=== PATIENT | male | born 1940 | race Caucasian/White ===

== ENCOUNTER 2017-04-14 08:21 | Outpatient (CLI) | payer MEDICARE ==
--- NOTE | 2017-04-14 09:33 | RAD ---
CERVICAL SPINE: (AP, lateral, standing, flexion, and extension) Date: 04/14/17 HISTORY: M54.12, cervical radiculopathy. COMPARISON: None. FINDINGS: In the neutral position, no significant listhesis. Moderate degenerative narrowing at C5-6. Anterior osteophytes from C3-C7. Moderate facet arthropathy C2-C7. With flexion, there is low grade 2.0 mm C4 over C5 anterolisthesis. This retains normal alignment in extension. IMPRESSION: Low grade translation with 2.0 mm anterolisthesis of C4 over C5 in flexion which improves with extens ion. POS: [facility]
--- NOTE | 2017-04-14 13:55 | MRI ---
MRI CERVICAL SPINE NONCONTRAST: Date: 04/14/17 HISTORY: 76-year-old male with cervical radiculopathy. M54.12. COMPARISON: None. FINDINGS: No major bone marrow signal abnormality. Cervical spinal cord is normal in size and signal. No Chiari I malformation. Vertebral body heights a re maintained. C1-2: No central stenosis. Mildly prominent degenerative pseudopannus posterior to odontoid process. C2-3: Disc space maintained. No central or significant neural foraminal stenosis. Mild to moderate bilatera l degenerative facet changes. C3-4: Disc space maintained. Broad based disc-osteophytic bar complex encroaches upon the anterior aspect o f the spinal canal. Bilateral uncinate process osteophytes. Moderate to severe right degenerative fac et changes. Severe left degenerative facet changes. Mild to moderate central spinal canal stenosis. S evere bilateral neural foraminal stenosis. C4-5: Mild to moderate disc space narrowing. Broad based disc-osteophytic bar complex encroaches upon the a nterior aspect of the spinal canal, causing severe central spinal canal stenosis. Bilateral uncinate process osteophytes and facet hypertrophy encroach upon bilateral neural foramina. Moderate right deg enerative facet changes. Moderate to severe left degenerative facet changes. Severe bilateral neural foraminal stenosis. C5-6: Moderate to severe disc space narrowing. Broad based disc-osteophytic bar complex indents the ventral surface of the spinal cord. Thickened ligamentum flavum abuts the dorsal surface of the spinal cord. This results in severe central spinal canal stenosis, greater than at the C4-5 level. Bilateral unci hanh process osteophytes. Essentially normal bilateral facet joints. Severe right neural foraminal st enosis. Moderate to severe left neural foraminal stenosis. C6-7: Disc space maintained. No high grade central spinal canal stenosis. Mild to moderate bilateral degene rative facet changes. Bilateral uncinate process osteophytes. Mild right neural foraminal stenosis. M oderate left neural foraminal stenosis. C7-T1: Mild disc space narrowing. Moderate bilateral degenerative facet changes. No central stenosis. Mild b ilateral neural foraminal stenosis. IMPRESSION: 1. Cervical spondylosis, with multilevel degenerative disc disease (greatest at C5-6) and multilevel facet osteoarthrosis. 2. Severe central spinal canal stenosis at C5-6 and C4-5. 3. Multilevel high grade bilateral neural foraminal stenosis, including severe. POS: [facility]
== END 2017-04-14 08:22 | disposition home or self-care (01) ==
LOC: TBSIIMAG 08:21
PROVIDERS: ATTEND Neurological Surgery
DX: M47.22 Other spondylosis with radiculopathy, cervical region (principal); M43.12 Spondylolisthesis, cervical region; M48.02 Spinal stenosis, cervical region; M50.122 Cervical disc disorder at C5-C6 level with radiculopathy; M12.88 Other specific arthropathies, not elsewhere classified, other specified site
CPT/HCPCS: 72040; 72141

== ENCOUNTER 2017-04-25 05:44 | Day surgery (SDC) | payer MEDICARE, OTHER ==
--- NOTE | 2017-04-21 17:36 | HP ---
HISTORY OF PRESENT ILLNESS: Mr. Sharp is a 76-year-old male who presents with pain, numbness, a nd tingling in the L5 dermatome bilaterally. He has had this pain for approximately 3 years. He has had several L5-S1 LAST injections with Dr. Zabala, has given him some relief. He is also having pa in with internal rotation of the femur that shoots into the groin. The pain in the low back has made some better with analgesics and bending forward and sitting. Of greater concern, he is having neck pain with symptoms of cervical myelopathy. He has been increasingly off balance, loss of dexterity i n his fingers with fine motor movement and frequently dropping things. He is hyperreflexic in the up per and lower extremities bilaterally and has positive Lhermitte sign when extending the neck. He mulligan s paresthesias in the hands and arms that is nondermatomal. MRI at [facility] as well as x-rays. REVIEW OF SYSTEMS: Ten-point review of systems is completed, is otherwise negative unless stated in the above HPI. PAST MEDICAL HISTORY: None. FAMILY HISTORY: Father is . Mother is . SOCIAL HISTORY: The patient is a nonsmoker, , and has 3 children. MEDICATIONS: 1. Taking acetaminophen 325 mg tablet, 1 tablet orally q.6 hours. 2. Aspirin 81 mg delayed release, 1 tablet orally once a day. 3. Atorvastatin calcium 80 mg tablet, 1 tablet orally once a day. 4. Esomeprazole sodium 40 mg solution reconstituted intravenous. 5. Gabapentin 100 mg capsule, 1 capsule orally 3 times a day. 6. Ibuprofen 200 mg tablet, 1 tablet with food or milk as needed orally 3 times a day. 7. Lisinopril 10 mg tablet, 1 tablet orally once a day. 8. Loratadine 10 mg tablet, 1 tablet orally once a day. 9. Tizanidine HCL 4 mg tablet, 1 tablet as needed orally 3 times a day. ALLERGIES: No known drug allergies. PHYSICAL EXAMINATION: HEENT: Normocephalic, atraumatic. Hearing intact. Moist mucous membranes. Trachea is midline. Ey es, pupils are equal and reactive to light. Extraocular muscles are intact. Sclerae are white, leo cteric. PSYCHIATRIC: Normal mood and affect. CARDIOVASCULAR/CARDIOPULMONARY: No cyanosis or clubbing noted. Intact pedal pulses bilaterally. MUSCULOSKELETAL: Lower extremities, 5/5 strength in bilateral iliopsoas, quadriceps, hamstrings, rig ht tibialis anterior, and extensor hallucis longus. Sensory deficits in the L5 dermatome bilaterally and tender to palpation in the midline lumbar spine. Upper extremity, 5/5 strength in bilateral bic eps and triceps. Limited range of motion in his shoulders. Sensory deficits bilaterally in the hand s and arms. RESPIRATORY: The patient has bilateral symmetric chest rise. Appears to have no shortness of breath . NEUROLOGIC: Cranial nerves II-XII are grossly intact. Speech is fluent. He answers my questions ap propriately. The patient is off balance with gait and station. Tandem gait is off balance. Hyperre flexic in the upper and lower extremities bilaterally. ASSESSMENT: 1. Spondylosis with cervical myelopathy. 2. Radiculopathy of the lumbar region. PLAN: Dr. Guidry offered a C4-C6 ACDF to prevent neurologic decline from the cervical myelopathy, compression on the spinal cord. We discussed the risks, benefits, alternatives, and possible compli cations of surgery. Mr. Sharp understands the risk and is willing to proceed with the surgery. L5 radiculopathy may be considered for treatment after ACDF.
[2017-04-24 14:32] VITALS: BMI 25.8
[2017-04-25] MEDS ORDERED: Sodium Chloride 0.9% 10 ML ONE (06:17)
[2017-04-25] MEDS ORDERED: Thrombin 5000 UNITS/5 ML VIAL ONE (06:17)
[2017-04-25] MEDS ORDERED: CEFAZOLIN/Water 2 GM/20 ML SYRINGE ONE (06:20)
[2017-04-25 06:32] LABS: #Basophils 0.1 thou/uL (0.0-0.2); #Eosinphils 0.3 thou/uL (0.0-0.7); #Lymphocytes 2.4 thou/uL (1.20-3.40); #Monocytes 0.9 thou/uL (0.11-0.59); #Neutrophils 6.3 thou/uL (1.40-6.50); %Basophils 0.8 % (0.0-1.0); %Eosinophils 2.8 % (0.0-10.0); %Lymphocytes 24.5 % (21.0-51.0); %Monocytes 9.3 % (0.0-10.0); %Neutrophils 62.6 % (42.0-75.0); Hemoglobin 12.9 g/dL (14.0-18.0); Mean Corpuscular HGB CONC 33.3 g/dL (32.0-36.0); Mean Corpuscular Hemoglobin 29.5 pg (27.0-31.0); Mean Corpuscular Volume 88.8 fl (80.0-94.0); Mean Platelet Volume 6.6 fL (7.4-10.4); Platelet Count 158 thou/uL (130-400); RBC Distribution Width 13.1 % (11.5-14.5); Red Blood Cell (RBC) Count 4.37 mill/uL (4.70-6.10)
[2017-04-25 06:43] LABS: INR-International Normal Ratio 1.1; PTT 31.8 SEC (22.9-36.1); Prothrombin Time 14.4 SEC (12.0-14.7)
[2017-04-25 06:58] LABS: Anion Gap 12 mmol/L (10-20); BUN (Urea Nitrogen) 20 mg/dL (8.4-25.7); Calc. Creatinine Clearance 86 mL/min (70-130); Calcium 9.1 mg/dL (7.8-10.44); Carbon Dioxide 26 mmol/L (23-31); Chloride 107 mmol/L (98-107); Estimated GFR-MDRD Greater than 90; Glucose 101 mg/dL (83-110); Potassium 3.9 mmol/L (3.5-5.1); Sodium 141 mmol/L (136-145)
[2017-04-25] MEDS ORDERED: Fentanyl 100 MCG/2 ML VIAL ONE ×4 (07:05→11:15)
--- NOTE | 2017-04-25 11:14 | OP ---
DATE OF SURGERY: 04/25/2017 SURGEON: Shon Guidry M.D. FILM PROJECTOR OPERATOR: Aly Ríos PA-C. PREOPERATIVE INDICATION: Treat pain, prevent neurological deterioration. PREOPERATIVE DIAGNOSES: Intervertebral disk disease with cervical spinal stenosis and cervical radic ulopathy at C4-5 and C5-6. POSTOPERATIVE DIAGNOSES: Intervertebral disk disease with cervical spinal stenosis and cervical radi culopathy at C4-5 and C5-6. OPERATIVE PROCEDURE: Anterior cervical diskectomy, intervertebral arthrodesis, placement of interver tebral biomechanical device, anterior cervical plating C4-5 and C5-6, local morselized autograft, mor selized allograft, operating microscope. PREOPERATIVE MEDICATION: Ancef 2 grams IV. DRAIN NUMBER: Zero. DRAIN TYPE: None. OPERATIVE DICTATION: The patient was brought to the operating room. General endotracheal anesthesia was induced. Keeping the neck in normal anatomic alignment, the head was positioned on a gel-filled donut shaped head rest. A lateral fluoro radiograph was used to plan our incision. The right side of the neck was sterilely prepped and draped. We opened our incision with a 10-blade knife and contr olled bleeding with bipolar cautery. We dissected sharply to the platysma and cut this muscle in corina e with our incision. We continued our dissection medial to the sternocleidomastoid, lateral to the t rachea and esophagus, all the way down to the prevertebral space. We placed a marker at C4-C5 and to ok a lateral fluoro radiograph to confirm the levels upon, which we were operating. We elevated the longus colli muscles off the anterior surface of C4, C5, and C6, and placed self-retaining lateral re tractor. Distraction pins were placed at C4 and C6 and we distracted across both of the intervening interspaces. We incised the interspaces with a 15-blade knife and removed disk contents using curett es and rongeurs. The operative microscope was brought into the field. Under microscopic magnification and using microsurgical techniques, we removed the remainder of the i ntervertebral disk. We removed the posterior longitudinal ligament. We removed posterior osteophyte s. At the completion of our diskectomy and osteophytectomy, the dura was decompressed from one nerve root all the way across the interspace to the other nerve roots at C4-5 and C5-6. We then prepared the endplates for grafting using curettes and a bone rasp was used to measure the height of the inter spaces to 6 mm. Two separate 6 mm PEEK intervertebral grafts were brought into the field. The osteo phytes then were removed. The vertebral bodies were carefully cleaned of their soft tissue attachmen ts, morselized into demineralized bone matrix, and this fusion substrate was packed inside the PEEK g rafts before they were advanced into their respective interspaces under radiographic guidance to the appropriate depth. We then removed the distraction pins and took the operating microscope out of the field. A 32-mm anterior cervical plate was brought into the field. We drilled pilot supervisor holes through the plate into the vertebral segments at C4, C5, and C6 and affixed the plate with 14-mm screws. We used variable angle screws at C4 and C5 and fixed angle screws at C6. We engaged the locking mechani sm over each of the 6 screws. We irrigated copiously with bacitracin irrigation. AP and lateral flu nicolas radiographs confirmed adequate position of our instrumentation. We closed the wound in anatomic layers and applied a sterile dressing. This was a clean case and no contamination.
[2017-04-25] MEDS ORDERED: HYDROmorphone 0.5 MG/0.5 ML SYRINGE ONE ×3 (11:44→12:08)
[2017-04-25] MEDS ORDERED: Cyclobenzaprine 10 MG TAB ONE (13:11)
[2017-04-25] MEDS ORDERED: ePHEDrine/0.9% NaCl/PF SYRINGE 50 mg/10 ml ONE (14:37)
[2017-04-25] MEDS ORDERED: Lidocaine 1% PF 5 ML VIAL ONE (14:37)
[2017-04-25] MEDS ORDERED: Ondansetron HCl/PF 4 MG/2 ML Vial ONE (14:37)
[2017-04-25] MEDS ORDERED: Propofol 200 MG/20 ML VIAL ONE (14:37)
[2017-04-25] MEDS ORDERED: PHENYLEPHRINE-NS 100 MCG/ML 10 ML SYRINGE ONE (14:37)
== END 2017-04-25 15:46 | disposition home or self-care (01) ==
LOC: SDC 05:44
PROVIDERS: ATTEND Neurological Surgery
PROC: 0RG20A0 Fusion of 2 or more Cervical Vertebral Joints with Interbody Fusion Device, Anterior Approach, Anterior Column, Open Approach (ICD-10-PCS; principal; 2017-04-25)
DX: M50.122 Cervical disc disorder at C5-C6 level with radiculopathy (principal); M48.02 Spinal stenosis, cervical region; Z90.49 Acquired absence of other specified parts of digestive tract; Z98.890 Other specified postprocedural states; Z95.1 Presence of aortocoronary bypass graft
CPT/HCPCS: 20930; 20936; 22551; 22853; 76001; 80048; 85025; 85610; 85730; 96374 ×2; C1713 ×2; C1776; 36415; A4216; J0131; J1170; J2001; J2405; J2704; J3010; J3490

== ENCOUNTER 2017-04-29 12:26 | Inpatient (IN) | payer MEDICARE, OTHER ==
[2017-04-29] MEDS ORDERED: ISOVUE-370 76%-LOCM 1 ML ONE (12:59)
[2017-04-29 13:42] LABS: #Eosinphils 0.1 thou/uL (0.0-0.7); #Lymphocytes 1.9 thou/uL (1.20-3.40); #Monocytes 0.7 thou/uL (0.11-0.59); #Neutrophils 6.1 thou/uL (1.40-6.50); %Basophils 0.5 % (0.0-1.0); %Eosinophils 1.4 % (0.0-10.0); %Lymphocytes 21.6 % (21.0-51.0); %Monocytes 7.8 % (0.0-10.0); %Neutrophils 68.7 % (42.0-75.0); Hemoglobin 13.2 g/dL (14.0-18.0); Mean Corpuscular HGB CONC 33.8 g/dL (32.0-36.0); Mean Corpuscular Hemoglobin 30.2 pg (27.0-31.0); Mean Corpuscular Volume 89.5 fl (80.0-94.0); Mean Platelet Volume 6.9 fL (7.4-10.4); Platelet Count 195 thou/uL (130-400); RBC Distribution Width 12.7 % (11.5-14.5); Red Blood Cell (RBC) Count 4.38 mill/uL (4.70-6.10); White Blood Cell (WBC) Count 8.9 thou/uL (4.8-10.8)
--- NOTE | 2017-04-29 13:51 | RAD ---
CHEST 1 VIEW: HISTORY: Cough. Recent surgery. FINDINGS: Cardiac silhouette and pulmonary vasculature are unremarkable. Mediastinum is midline with postopera tive changes. There is no lobar consolidation or evidence of pneumothorax. Lungs are hyperinflated. IMPRESSION: Chronic obstructive pulmonary disease. POS: [facility]
[2017-04-29] MEDS ORDERED: PHENYLEPHRINE-NS 100 MCG/ML 10 ML SYRINGE ONE (13:56)
[2017-04-29] MEDS ORDERED: Glycopyrrolate 0.2 MG/ML 5 ML SYRINGE ONE (13:56)
[2017-04-29] MEDS ORDERED: Succinylcholine Chloride 20 MG/ML 10 ml SYRINGE FS ONE (13:56)
[2017-04-29] MEDS ORDERED: Dexamethasone 20 MG/5 ML VIAL ONE (13:56)
[2017-04-29] MEDS ORDERED: PROPOFOL 200 MG/20 ML VIAL ONE (13:56)
[2017-04-29 13:57] LABS: ALT (SGPT) 35 U/L (8-55); AST (SGOT) 31 U/L (5-34); Albumin 4.1 g/dL (3.4-4.8); Alkaline Phosphatase 102 U/L (40-150); Anion Gap 12 mmol/L (10-20); BUN (Urea Nitrogen) 19 mg/dL (8.4-25.7); Bilirubin, Total 0.9 mg/dL (0.2-1.2); Calc. Creatinine Clearance 0 mL/min (70-130); Carbon Dioxide 28 mmol/L (23-31); Chloride 102 mmol/L (98-107); Estimated GFR-MDRD Greater than 90; Globulin 3.3 g/dL (2.4-3.5); Glucose 87 mg/dL (83-110); Potassium 3.9 mmol/L (3.5-5.1); Protein, Total 7.4 g/dL (5.8-8.1); Sodium 138 mmol/L (136-145)
--- NOTE | 2017-04-29 15:07 | CT ---
CT NECK WITH IV CONTRAST: HISTORY: Neck pain. Difficulty swallowing. Cervical spine fusion 4 days ago. FINDINGS: Anterior fixation hardware is in place at the C4-5-6 levels. Soft tissue gas is present within the r ight anterior neck from recent surgery. Centered anterior to the cervical spine at the postoperative levels, an irregular-shaped well-circums cribed fluid collection extends primarily to the right of midline, between the right thyroid lobe and carotid sheath. The internal fluid is homogeneous. It measures up to 8.1 cm length x 5.[address] width x 2.4 cm greatest depth. It effaces the posterior oropharynx and compresses the upper epigl ottis. IMPRESSION: Large irregular-shaped homogeneous fluid collection at the prevertebral space of the midcervical spin e at the levels of recent surgery. There is resultant effacement of the hypopharynx including the up per esophagus. POS: [facility]
[2017-04-29] MEDS ORDERED: Dexamethasone 10 MG/ML VIAL ONE (15:43)
[2017-04-29] MEDS ORDERED: Vancomycin HCl 1.5 GM in Sodium Chloride 0.9% 250 ML 300 ML IVPB SCH (18:00)
[2017-04-29] MEDS ORDERED: Piperacillin/Tazobactam 4.5 GM in Sodium Chloride 0.9% 100 ML IVPB ONE (18:00)
[2017-04-29 18:43] VITALS: BMI 24.7
[2017-04-29] MEDS ORDERED: Lidocaine Viscous Sol 2% 15 ml UD Cup ONE (19:19)
[2017-04-29] MEDS ORDERED: Dexmedetomidine 200 MCG/2 ML VIAL ONE (19:19)
[2017-04-29] MEDS ORDERED: Lidocaine 4% Topical Sol 50 ML BOT ONE (19:19)
[2017-04-29] MEDS ORDERED: Ketamine 50 MG/ML VIAL ONE (19:35)
[2017-04-29] MEDS ORDERED: Lidocaine 4% PF 5 ML AMP NEB SCH (19:45)
[2017-04-29] MEDS ORDERED: Midazolam HCl 2 mg/2 ml Vial ONE (20:05)
[2017-04-29] MEDS ORDERED: Ondansetron HCl/PF 4 MG/2 ML Vial IVP PRN (20:59)
[2017-04-29] MEDS ORDERED: Sedation Protocol FS SCH (20:59)
[2017-04-29] MEDS ORDERED: tiZANidine HCl 4 MG TAB PO PRN (20:59)
[2017-04-29] MEDS ORDERED: diphenhydrAMINE 50 MG/ML VIAL IVP PRN (20:59)
[2017-04-29] MEDS ORDERED: Ventilator Sedation Protocol 1 EACH FS SCH (20:59)
[2017-04-29] MEDS ORDERED: Morphine 10 MG/ML CARPUJECT SLOW IVP PRN (20:59)
[2017-04-29] MEDS ORDERED: Morphine 2 MG/ML SYRINGE SLOW IVP PRN (21:05)
[2017-04-29] MEDS ORDERED: Fentanyl BOLUS 250 ML IVPB PRN (21:05)
[2017-04-29] MEDS ORDERED: Lorazepam 2 MG/ML VIAL SLOW IVP PRN (21:05)
[2017-04-29] MEDS ORDERED: Propofol 1,000 MG/100 ML VIAL IV PRN (21:05)
[2017-04-29] MEDS ORDERED: fentaNYL Citrate/PF 2,000 MCG in Sodium Chloride 0.9% 60 ML IV SCH (21:05)
[2017-04-29] MEDS ORDERED: DISCONTINUE PREVIOUS NARCOTIC PAIN MEDICATIONS AND BENZODIAZEPINES FS SCH (21:05)
[2017-04-29] MEDS ORDERED: Fentanyl 100 MCG/2 ML VIAL ONE (21:07)
[2017-04-29] MEDS: Sodium Chloride 0.9% 1,000 ML IV SCH (22:02)
[2017-04-29] MEDS: CEFAZOLIN/Water 2 GM/20 ML SYRINGE SLOW IVP SCH (22:15)
[2017-04-29] MEDS ORDERED: Pantoprazole 40 MG VIAL IVP SCH (22:15)
--- NOTE | 2017-04-29 22:30 | OP ---
DATE OF PROCEDURE: 04/29/2017 SURGEON: Lee Coe M.D. SOCIAL MEDIA INTERN: Himanshu Lowe PA-C. INDICATION: Obstructed airway. DIAGNOSIS: Postoperative hematoma. PROCEDURE PERFORMED: Exploration of anterior cervical wound with evacuation of postoperative hematoma. ANESTHESIA: General. TECHNIQUE: The patient was brought in to the operating room and placed under general anesthesia. He was placed in the supine position. His anterior cervical incision on the right was prepped and draped in the usual sterile fashion. Following an appropriate operative pause, the incision was reopened. There was of hematoma present extending from beneath the platysma down to the prevertebral space. This was all suctioned away and irrigated copiously. There were no active bleeders evident. After decompressing this area and irrigating it, a deep drain was placed and brought out through a separate puncture site. The wound was then closed in anatomic layers and a pressure dressing was applied. There were no known procedural complications. [facility]ENTERMón[facility]
[2017-04-29] MEDS: Pantoprazole 40 MG VIAL IVP SCH (22:41)
--- NOTE | 2017-04-30 00:27 | PRG ---
DATE OF SERVICE: 04/29/2017 Mr. Sharp is a 76-year-old gentleman status post 2-level ACDF on Monday of this week. He presented to the ER late this afternoon with progressive dysphagia and dysphonia. He had a noncontrast CT performed in the ER, which revealed the prevertebral fluid mass with displacement of the oropharynx. It was still patent; however, on imaging. He has had increasing difficulty with swallowing even liquids at the time of presentation. While not stridorous in the emergency room, he was struggling to maintain his breath. He was given high dose steroids in the ER in an attempt to reduce swelling to see if this would help henny some of his symptoms, but that did not occur and we made the decision to move forward surgically with exploration of wound and evacuation of the fluid mass. I had a discussion with the patient's family and discussed with them the planned procedure as well as risks, benefits, and alternatives. LEON
--- NOTE | 2017-04-30 00:53 | HP ---
HISTORY OF PRESENT ILLNESS: Mr. Sharp is a 76-year-old man who is now postop day #4 following 2 level ACDF from C4-C6. Since Monday, he has started experiencing increasing dysphagia and dyspho aurelio, ultimately culminating a day where he has not been able to swallow even small sips of water. In the emergency department, this became even more difficult where he is having trouble handling his ow n secretions and has been using bedside suction to clear his posterior pharynx several times an hour. CT scan was performed in the emergency department of the soft tissues of his neck, which revealed monique kenney appears to be a consolidated homogenous fluid collection in the prevertebral space that is signif icantly compressive and effacing the esophageal orifice at the level of the epiglottis. This is like ly the source of his increasing troubles. On examination at the bedside, the patient is alert and or iented x3. He is quite hoarse and continues to use the suction during our discussion together as he does have an area of induration immediately incision on the anterolateral neck. His neurologi c exam is normal, and his fluid induration is nontender to palpation. PAST MEDICAL HISTORY: Significant for no major medical problems. CURRENT MEDICATIONS: Tylenol, aspirin, atorvastatin, esomeprazole, gabapentin, ibuprofen, lisinopril , loratadine, and tizanidine. ALLERGIES: No known drug allergies. ASSESSMENT: Intervertebral fluid collection and dysphagia. PLAN: I discussed with the patient at bedside current options. He is in the ICU when I am meeting w chelsi him. The first option would be to just observe and administer Decadron to try to decrease the sw elling within the pharynx and larynx and prevertebral space, but my preference would be to pursue sana gical management to evacuate this fluid collection as I feel that this may precipitate quickly and pu t us in a situation where he would be in a life-threatening scenario. I discussed with ludwin Tejeda o agrees after discussion with the family and the patient at bedside. We will move forward with reop eration and fluid collection evacuation . This is Himanshu Lowe PA-C, dictating for Dr. Lee Coe.
[2017-04-30] MEDS ORDERED: Dexamethasone 4 MG in Sodium Chloride 0.9% 50 ML IVPB SCH (03:00)
[2017-04-30] MEDS: Dexamethasone 4 mg/ml Vial SLOW IVP SCH ×3 (03:35→13:54)
[2017-04-30] MEDS: CEFAZOLIN/Water 2 GM/20 ML SYRINGE SLOW IVP SCH ×2 (06:14→13:54)
[2017-04-30 07:13] LABS: Base Excess (BEa) -3.4 mEq/L (0 (+/-) 2.5); CO2 Tension 41.1 mmHg (35.0-45.0); Hematocrit-ABG 32.8 % (42.0-52.0); Hemoglobin (Hb) 11.6 g/dL (14.0-18.0); O2 Tension (PaO2) 162.4 mmHg (80.0-100.0); pH, Arterial 7.35 (7.35-7.45)
[2017-04-30 07:14] LABS: Analyzer IN Cardio OR; Calcium, Ionized 1.2 mmol/L (1.12-1.30); Puncture Site RRA
[2017-04-30 07:15] LABS: ALV-art Gradient 71.425 (0-20)
--- NOTE | 2017-04-30 08:10 | PRG ---
DATE OF SERVICE: 04/30/2017 HISTORY: Mr. Sharp is postop day #01 following evacuation of a prevertebral hematoma yesterday evening around 8:00 p.m. This morning, he is still intubated and on sedation. This was for the purp ose of protecting his airway as he was edematous in the supraglottal pharynx and was concerned for the possibility of laryngospasm after being extubated after surgery. He will continue to receive two more doses of dexamethasone for this purpose. His drain has put out around 15 mL in total since in the OR. He is following all commands, moves all extremities when off sedation, but unfortunately for me at bedside this morning, he is still on and just had a bolus of propofol. Plan will be likel y later to consider extubation and see how he tolerates this. Overall, his prognosis is good. We wi ll continue to follow.
[2017-04-30] MEDS ORDERED: Prevnar 13-Val Conj/PF 0.5 ML SYRINGE IM ONE (09:00)
[2017-04-30] MEDS: Pantoprazole 40 MG VIAL IVP SCH (09:23)
[2017-04-30] MEDS: Sodium Chloride 0.9% 1,000 ML IV SCH (09:29)
[2017-04-30 10:33] VITALS: BP 115/61
--- NOTE | 2017-04-30 16:13 | PRG ---
DATE OF SERVICE: 04/30/2017 Rerounding today in the afternoon on Mr. Sharp. He has now been extubated and is doing extraord inarily well, tolerates oral intake and feels minimal irritation and still like he had been. His TONYA drain has only put out about 6-10 mL since this morning, so will go ahead and remove his drain and re move his Valles, got him sit up at the bedside and see how he tolerates that. If he does very well, corina casanova may likely be transitioned to the floor later this evening. Otherwise, we will keep him overnight in the ICU with possible discharge tomorrow.
--- NOTE | 2017-04-30 19:43 | CON ---
DATE OF CONSULTATION: 04/30/2017 HISTORY OF PRESENT ILLNESS: Lila is a 76-year-old male who presented with postop hematomas com promising his airway. This has been evacuated (cervical spine). He was left mechanically ventilated . I was consulted to assist in his management. PAST MEDICAL HISTORY: Otherwise unremarkable with the exception of his recent cervical spine surgery . SOCIAL HISTORY: He is nonsmoker, nondrinker. He has used drugs. He is , has children. FAMILY HISTORY: Remarkable for both parents being . He has no family history lung disease a t an early age. MEDICATIONS: Prior to admission he was on Tylenol, aspirin, atorvastatin, protime pump inhibitor, ga bapentin, lisinopril, loratadine and tizanidine. ALLERGIES: He has no reported drug allergies. REVIEW OF SYSTEMS: Negative. PHYSICAL EXAMINATION: VITAL SIGNS: His heart rate is in the 70s, blood pressure 120/68, respiratory rate is 18 and oximetr y is 97%-99%. GENERAL: He has a bandage on his neck. He is orally intubated. He is alert and oriented and moves all extremities equally. Minute volume 6 liters upto 7 liters a minute. He passes a leak test. LUNGS: Clear. HEART: Regular rhythm. ABDOMEN: Soft and nontender. EXTREMITIES: Without asymmetry. LABORATORY DATA: White count yesterday 0.9, hemoglobin 13.2 and platelets 195. Sodium 138, potassium 3.9, chloride 102, bicarb 28, BUN 19 and creatinine 0.82. IMPRESSION AND PLAN: Status post compromised airways associated with postoperative hematoma after ce rvical spine surgery. He is doing well now. He has been extubated. If he is stable this afternoon, he can be transferred out of the critical care unit to the surgical [facility] if neurosurgeons agree. CRITICAL CARE TIME: 30 minutes.
[2017-05-01] MEDS: Sodium Chloride 0.9% 1,000 ML IV SCH (00:43)
--- NOTE | 2017-05-01 06:46 | PRG ---
DATE OF SERVICE: 05/01/2017 I saw Polo Sharp this morning. He came in over the weekend with some difficulty breathing and postoperative hematoma/seroma in the neck that was removed and he is doing quite well. He has no sig nificant neck pain or radiating arm pain. His walking is fine. His hands are working well. Incisio n looks good this morning. There is no tension in the neck. Mr. Sharp will be ready for discharge today. We will make arrangements for that to happen. Act ivity restriction and wound care were reviewed once again and followup arrangements have already been made.
[2017-05-01 08:12] VITALS: TEMP 97.7
[2017-05-01] MEDS: Pantoprazole 40 MG VIAL IVP SCH (10:02)
--- NOTE | 2017-05-01 11:58 | PRG ---
DATE OF SERVICE: 05/01/2017 SUBJECTIVE: Mr. Sharp says he feels back to normal. He says he has no pain in his neck. He de nies shortness of breath and respiratory difficulty. He has no stridor. OBJECTIVE: VITAL SIGNS: On exam, his vital signs have been stable. LUNGS: Clear. HEART: Regular rhythm. ABDOMEN: Soft. IMPRESSION: Status post upper airway obstruction created by a paraspinous hematoma, status post evac uation, clinically doing extremely well. He is to be discharged today.
--- NOTE | 2017-05-03 14:42 | DIS ---
HISTORY OF PRESENT ILLNESS: Mr. Sharp is a 76-year-old male admitted on 04/29/2017 and discharg e on 05/01/2017. He has a history of postop day #4 following 2 level ACDF from C4-C6. Postoperative ly, after he left the hospital experienced increasing dysphagia and dysphonia ultimately accumulating and his inability to swallow even sips of water. In the emergency department, he became even more d ifficulty and is having trouble handling his own secretions. CT scan was performed in the emergency department that showed what appears to be a consolidated homogenous fluid collection on the preverteb ral space with a significantly compressive and effacing the esophagus orifice at the level of the epi glottis, likely it is a source of his problems. The patient is alert and oriented x3. He is quite h oarse and continues to use suction during our discussion thereafter. Neurologic exam is normal and f luid induration is nontender to palpation. ADMISSION DIAGNOSES: Intervertebral fluid collection and dysphagia. DISCHARGE DIAGNOSES. Intervertebral fluid collection and dysphagia. DISCHARGE CONDITION: The patient is stable. He is able to tolerate regular diet. His pain is well controlled with pain medication. Dysphagia has resolved. PROCEDURE: The patient has evacuation of the hematoma at C4-C6 region that was compressing the esoph liza. HOSPITAL COURSE: Throughout his hospital stay, the patient did well postoperatively. He was able to tolerate regular diet. His pain well controlled with pain medication. He was given Decadron to dec rease the swelling in the pharynx, larynx and prevertebral space. ACTIVITY: The patient can have regular activity upon discharge with exceptions of lifting more than 15 pounds. The patient is to wear a cervical spine collar when walking and when sitting upright in t he car. DIET: The patient can have a regular diet upon discharge. HOME MEDICATIONS: Please see home medication list.
--- NOTE | 2017-05-20 18:19 | EKG ---
Test Reason : Blood Pressure : / mmHG Vent. Rate : 098 BPM Atrial Rate : 098 BPM P-R Int : 134 ms QRS Dur : 086 ms QT Int : 358 ms P-R-T Axes : 042 059 036 degrees QTc Int : 457 ms Sinus rhythm with Premature atrial complexes Otherwise normal ECG Confirmed by ANAM HODGSON ([id number]), assignment editor SHONNA JAY ([id number]) on 05/20/2017 6:18:36 PM Referred By: Confirmed By:ANAM HODGSON
== END 2017-05-01 11:15 | disposition home or self-care (01) | DRG 908 ==
LOC: ERS 12:26 → CCU 17:20
PROVIDERS: ADMIT Neurological Surgery; ATTEND Neurological Surgery
PROC: 0KC20ZZ Extirpation of Matter from Right Neck Muscle, Open Approach (ICD-10-PCS; principal; 2017-04-29)
DX: M96.840 Postprocedural hematoma of a musculoskeletal structure following a musculoskeletal system procedure (principal); J95.89 Other postprocedural complications and disorders of respiratory system, not elsewhere classified; J38.4 Edema of larynx; K91.89 Other postprocedural complications and disorders of digestive system; R13.10 Dysphagia, unspecified; Z98.1 Arthrodesis status; Z23 Encounter for immunization; R49.0 Dysphonia
CPT/HCPCS: 70491; 71045; 80053; 82805; 85025; 85652; 86140; 86850; 86900; 86901; 90471; 90670; 93005; 94002; 94003; 96361; 96374; A4216; C9113; G0009; J1100; J2001; J2250; J2405; J2543; J2704; J3010; J3370; J7050

== ENCOUNTER 2017-06-13 13:13 | Outpatient (CLI) | payer MEDICARE, OTHER ==
--- NOTE | 2017-06-13 14:58 | RAD ---
THREE VIEW CERVICAL SPINE SERIES: Comparison: 04-14-17 Indication: Cervical radiculopathy. FINDINGS: Anterior metallic fusion spans C4 through C6 with anterior metal plate, prevertebral screws, as well as intervening disc space prostheses. No obvious perihardware lucency is seen. There is moderate mult ilevel degenerative change throughout the cervical spine. No significant malalignment. Imaged dens is intact. IMPRESSION: Post-operative cervical spine without hardware complication. POS: [facility]
== END 2017-06-13 13:14 | disposition home or self-care (01) ==
LOC: TBSIIMAG 13:13
PROVIDERS: ATTEND Neurological Surgery
DX: M54.12 Radiculopathy, cervical region (principal); Z98.890 Other specified postprocedural states
CPT/HCPCS: 72040

== ENCOUNTER 2023-10-06 08:07 | Outpatient (CLI) | payer MEDICARE, OTHER | END 2023-10-06 08:08 | disposition home or self-care (01) | LOC: NM 08:07 | PROVIDERS: ATTEND Psychiatry & Neurology Neurology | DX: G20.C Parkinsonism, unspecified (principal) | CPT/HCPCS: 78803; A9584 ×2 ==